=== PATIENT | female | born 1955 | race Caucasian/White ===

== ENCOUNTER 2023-08-05 10:42 | Day surgery (SDC) | payer MEDICARE ==
[2023-08-05] MEDS ORDERED: PROPOFOL 500 MG/50 ML 500 MG/50 ML VIAL ONE (10:47)
[2023-08-05] MEDS ORDERED: LACTATED RINGERS 1,000 ML IV ONE ×2 (11:00→11:58)
--- NOTE | 2023-08-05 11:28 | ANESTHESIA ---
Pre-Anesthesia VS, & Labs - Diagnosis screening - Procedure colonoscopy Vital Signs: Temp Pulse Resp BP Pulse Ox O2 Flow Rate 36.1 C L 53 L 16 136/70 H 99 08/05/23 11:02 08/05/23 11:02 08/05/23 11:02 08/05/23 11:02 08/05/23 11:02 Height: 5 ft 7 in Weight (kg): 96.8 kg Body Mass Index: 33.4 BMI Classification: Obese - NPO >8 hours - Is Patient ?: No Home Medications and Allergies Home Medications: Ambulatory Orders Amphetamine/Dextroamphetamine 5 mg PO DAILY 08/05/23 Escitalopram Oxalate 1 tab PO DAILY 08/05/23 Levothyroxine [Synthroid] 1 tab PO DAILY 08/05/23 Meloxicam 1 tab PO DAILY 08/05/23 Nebivolol HCl [Bystolic] 1 tab PO DAILY 08/05/23 Rosuvastatin Calcium [Crestor] 1 tab PO DAILY 08/05/23 metFORMIN [Glucophage] 500 mg PO ONCE 08/05/23 Amphetamine/Dextroamphetamine 5 mg PO DAILY 08/05/23 Escitalopram Oxalate 1 tab PO DAILY 08/05/23 Levothyroxine [Synthroid] 1 tab PO DAILY 08/05/23 Meloxicam 1 tab PO DAILY 08/05/23 Nebivolol HCl [Bystolic] 1 tab PO DAILY 08/05/23 Rosuvastatin Calcium [Crestor] 1 tab PO DAILY 08/05/23 metFORMIN [Glucophage] 500 mg PO ONCE 08/05/23 Allergies/Adverse Reactions: Allergies Allergy/AdvReac Type Severity Reaction Status Date / Time No Known Drug Allergies Allergy Verified 08/05/23 11:15 Anes History & Medical History - Anesthetic History Anesthesia Complications: reports: No previous complications Family history of Anesthesia Complications: Denies Family history of Malignant Hyperthermia: Denies - Medical History Cardiovascular: reports: High cholesterol, Atrial fibrillation, Other Pulmonary: reports: Sleep apnea Gastrointestinal: reports: GERD, Colon polyps, Other Urinary: reports: Incontinence Musculoskeletal: reports: None Endocrine/Autoimmune: reports: Type 2 diabetes Skin: reports: None - Surgical History General: reports: Colonoscopy Cardiothoracic: reports: Other Gynecologic: reports: Hysterectomy Exam General: Alert, Oriented x3, Cooperative Dental: WNL Mouth Openin Fingerbreadth Neck Mobility: Normal Mallampati classification: II Thyromental Distance: 4-6 cm Respiratory: Lungs clear Cardiovascular: Regular rate Plan Anesthesia Type: General, Total IV Consent for Procedure(s) Verified and Reviewed: Yes Code Status: Attempt Resuscitation ASA classification: 2-Mild systemic disease Is this case an emergency?: No
[2023-08-05] MEDS ORDERED: PROPOFOL 200 MG/20 ML VIAL IVP ONE (11:41)
[2023-08-05 12:08] VITALS: O2SAT 100
[2023-08-05 12:17] VITALS: BP 110/65
--- NOTE | 2023-08-05 12:53 | ANESTHESIA POST OP EVALUATION ---
Anesthesia Post Eval - Post Anesthesia Eval Vitals: Last Vital Signs Temp 36 C L 08/05/23 12:10 Pulse 57 L 08/05/23 12:10 Resp 17 08/05/23 12:10 BP 110/65 08/05/23 12:10 Pulse Ox 100 08/05/23 12:10 O2 Flow Rate CV Function Including HR & BP: Stable Pain Control: Satisfactory Nausea & Vomiting: Negative Mental Status: Baseline Respiratory Status: Airway Patent Hydration Status: Satisfactory Anesthesia Complications: None
== END 2023-08-05 10:43 | disposition home or self-care (01) ==
LOC: SDS 10:42
PROVIDERS: ATTEND Surgery
DX: Z12.11 Encounter for screening for malignant neoplasm of colon (principal); Z86.010 Personal history of colon polyps; Z87.891 Personal history of nicotine dependence; E66.9 Obesity, unspecified; Z68.33 Body mass index [BMI] 33.0-33.9, adult; I48.91 Unspecified atrial fibrillation; G47.30 Sleep apnea, unspecified; E11.9 Type 2 diabetes mellitus without complications; Z79.84 Long term (current) use of oral hypoglycemic drugs
CPT/HCPCS: G0105; J7120

== ENCOUNTER 2023-10-31 12:12 | Outpatient (CLI) | payer MEDICARE ==
--- NOTE | 2023-11-03 08:34 | Mammography Report ---
BILATERAL DIGITAL DIAGNOSTIC MAMMOGRAM 3D/2D: 10/31/2023 CLINICAL: Provider requested bilateral diagnostic. History of right breast cancer. Comparison is made to exams dated: 08/28/2022 mammogram and 08/21/2021 mammogram - [facility]. There are scattered areas of fibroglandular density in both breasts (category b / 25%-50% glandular t issue). Benign vascular calcifications in the right breast. Benign calcifications in the left breast. Post-op erative finding in the left breast is unchanged. Left breast biopsy clip. No significant masses, calc ifications, or other findings are seen in either breast. IMPRESSION: BENIGN There is no mammographic evidence of malignancy. Stable post-operative finding in the left breast is unchanged. A 1 year screening mammogram is recommended. Exam findings were conveyed to the patient. This exam was interpreted at Station ID: [id number]. NOTE: For mammograms, a report in lay terms will be sent to the patient. Approximately 15% of breast malignancies will not be visualized mammographically. In the management of a palpable breast mass, a negative mammogram must not discourage biopsy of a clinically suspicious lesion. Electronically Signed By: Shaun Crockett M.D. slc/:10/31/2023 13:09:19 ACR BI-RADS Category 2: Benign Finding(s) 3342F PARENCHYMAL PATTERN: (A) - The breast(s) demonstrate(s) scattered fibroglandular densities. BI-RADS CATEGORY: (2) - 2 Mammogram [id number] 1 year screening LATERALITY: (B)
== END 2023-10-31 12:13 | disposition home or self-care (01) ==
LOC: DI 12:12
PROVIDERS: ATTEND Registered Nurse General Practice
DX: Z85.3 Personal history of malignant neoplasm of breast (principal); R92.323 Mammographic fibroglandular density, bilateral breasts; R92.1 Mammographic calcification found on diagnostic imaging of breast; I65.23 Occlusion and stenosis of bilateral carotid arteries; C56.9 Malignant neoplasm of unspecified ovary
CPT/HCPCS: 36415; 86304; 93880

== ENCOUNTER 2023-10-31 12:14 | Outpatient (CLI) | payer MEDICARE ==
--- NOTE | 2023-10-31 15:42 | Ultrasound Report ---
PROCEDURE: Carotid Doppler Complete INDICATIONS: CAROTID ARTERY STENOSIS TECHNIQUE: Color and pulse Doppler interrogation was performed of both carotid systems, with image documentation and velocity measurements. COMPARISON: None. FINDINGS: Right side: Brachial blood pressure: 151 mm Hg. Common carotid artery peak systolic velocity: 52.9 cm/sec. Internal carotid artery peak systolic velocity: 55.0 cm/sec. Internal carotid artery end diastolic velocity: 16.4 cm/sec. External carotid artery peak systolic velocity: 67.1 cm/sec. ICA/CCA peak systolic ratio: 1.03 . Collado scale imaging description: Mild atherosclerotic plaque. Percent internal carotid artery stenosis: Less than 50 percent stenosis. Vertebral artery: Flow direction is antegrade. Left side: Brachial blood pressure: 157 mm Hg. Common carotid artery peak systolic velocity: 48.9 cm/sec. Internal carotid artery peak systolic velocity: 146.7 cm/sec. Internal carotid artery end diastolic velocity: 40.2 cm/sec. External carotid artery peak systolic velocity: 72.4 cm/sec. ICA/CCA peak systolic ratio: 3 . Collado scale imaging description: Moderate atherosclerotic plaque. Percent internal carotid artery stenosis: 50-69 percent stenosis. Vertebral artery: Flow direction is antegrade. IMPRESSION: 1. In the right internal carotid artery, there is less than 50 percent stenosis based on peak systoli c velocity criteria. 2. In the left internal carotid artery, there is 50-69 percent stenosis based on peak systolic veloci ty criteria. 3. Antegrade blood flow within the right vertebral artery. 4. Antegrade blood flow within the left vertebral artery. The estimate of stenosis included in the report of the imaging study was calculated using the [facility]-end orsed standards of carotid artery stenosis. Reviewed by: Daisy Cross MD on 10/31/2023 3:40 PM PST Approved by: Daisy Cross MD on 10/31/2023 3:40 PM PST Station ID: [id number]
== END 2023-10-31 12:15 | disposition home or self-care (01) ==
LOC: DI 12:14
PROVIDERS: ATTEND Physician Assistant Medical
DX: I65.23 Occlusion and stenosis of bilateral carotid arteries (principal)
CPT/HCPCS: 93880

== ENCOUNTER 2023-10-31 12:22 | Outpatient (CLI) | payer MEDICARE | END 2023-10-31 12:23 | disposition home or self-care (01) | LOC: LAB 12:22 | PROVIDERS: ATTEND Physician Assistant Medical | DX: C56.9 Malignant neoplasm of unspecified ovary (principal) | CPT/HCPCS: 36415; 86304 ==

== ENCOUNTER 2023-11-12 08:00 | Outpatient (CLI) | payer MEDICARE ==
[2023-11-12 20:00] LABS: BILIRUBIN,URINE NEGATIVE (NEGATIVE); GLUCOSE, URINE (UA) NEGATIVE (NEGATIVE); KETONES,URINE (UA) NEGATIVE (NEGATIVE); LEUKOCYTE ESTERASE, URINE MODERATE (NEGATIVE); NITRITE,URINE NEGATIVE (NEGATIVE); OCCULT BLOOD,URINE MODERATE (NEGATIVE); PROTEIN,URINE NEGATIVE (NEGATIVE); UROBILINOGEN,URINE 0.2 (NORMAL) E.U./dL (NORMAL)
[2023-11-12 20:01] LABS: CLARITY,URINE CLOUDY (CLEAR)
[2023-11-12 20:09] LABS: AMORPHOUS SEDIMENT,UR Marked /LPF; BACTERIA,URINE Few /HPF (None Seen); SQUAMOUS EPITHELIAL CELL,UR RARE Squamous (<= Few)
== END 2023-11-12 23:59 | disposition home or self-care (01) ==
LOC: LAB 08:00
PROVIDERS: ATTEND Physician Assistant Medical
DX: N39.0 Urinary tract infection, site not specified (principal)
CPT/HCPCS: 81001; 87086; 87181

== ENCOUNTER 2024-04-06 08:00 | Outpatient (CLI) | payer MEDICARE | END 2024-04-06 23:59 | disposition home or self-care (01) | LOC: LAB 08:00 | PROVIDERS: ATTEND Registered Nurse | DX: R30.0 Dysuria (principal) | CPT/HCPCS: 87086; 87181 ==

== ENCOUNTER 2024-05-18 08:00 | Outpatient (CLI) | payer MEDICARE | END 2024-05-18 08:01 | disposition home or self-care (01) | LOC: LAB 08:00 | PROVIDERS: ATTEND Urology | DX: R35.0 Frequency of micturition (principal) | CPT/HCPCS: 87086 ==

== ENCOUNTER 2024-06-01 16:14 | Outpatient (CLI) | payer MEDICARE | END 2024-06-01 16:15 | disposition home or self-care (01) | LOC: LAB 16:14 | PROVIDERS: ATTEND Urology | DX: N30.90 Cystitis, unspecified without hematuria (principal) | CPT/HCPCS: 87086 ==